=== PATIENT | male | born 1985 | race Caucasian/White ===

== ENCOUNTER 2018-11-12 21:43 | Emergency (ER) | payer BC, SELFPAY ==
[2018-11-12 21:44] VITALS: BP 175/104; PULSE 94; RESP 16; TEMP 36.7; O2SAT 94; BMI 58.0
[2018-11-12] MEDS: Diphth,Pertuss(Acell),Tet Vac 0.5 ML Vial IM (22:28)
[2018-11-12] MEDS: BACITRACIN 15 GM Tube 1 APPLIC TOPICAL (22:29)
--- NOTE | 2018-11-12 22:37 | ED.VISSUMM ---
- ER Visit Summary Date of Service: 11/12/18 Chief Complaint: Finger laceration History of Present Illness: The patient is a 32 M presenting secondary to a finger laceration. Patient states that he lacerated his finger with a sharp light that fell. His tetanus status is unknown. Lacerations on the left, and he is right-hand dominant. Physical Examination: Examination the patient's left hand shows evidence of a semicircular laceration over the patient's proximal interphalangeal joint on the dorsum of the index finger. Normal flexion and extension of the index finger normal two-point discrimination and capillary refill. Test Results: None indicated Emergency Department Course and Treatment: Patient presented secondary to an index finger laceration. Wound was anesthetized via digital block using 5 cc 1% lidocaine. Good anesthesia was obtained. Finger tourniquet was placed, and the wound was then explored through full range of motion. It does not appear to violate the joint capsule. It was then irrigated copiously with saline and scrubbed. Wound was approximated using 4-0 nylon suture. A total of 6 running sutures were used. Patient tolerated this well. Wound was dressed with bacitracin and was placed in a AlumaFoam splint. Patient's tetanus status was updated. Disposition: Discharge Impression: 1. 2 cm left index finger laceration 2. Laceration repair by ED physician This note was generated with [employer] dictation software. It may contain incorrect words, spelling, and punctuation that were not noted in review of the chart prior to signing ED Disposition - Plan for ED Patient: Disposition: Home or Assisted Living Chief Complaint: Laceration Diagnosis: Laceration of index finger Instructions: ED Laceration Hand Referrals: Ceferino Bolton MD [Primary Care Provider] - 10-14 Days suture removal
[2018-11-12 22:44] VITALS: BP 157/91; PULSE 93; RESP 16; O2SAT 98
== END 2018-11-12 23:01 | disposition home or self-care (01) ==
PROVIDERS: Emergency Provider Emergency Medicine; Family Provider Family Medicine; PCP Family Medicine
DX: S61.211A Laceration without foreign body of left index finger without damage to nail, initial encounter (principal); W26.8XXA Contact with other sharp object(s), not elsewhere classified, initial encounter; Y93.9 Activity, unspecified; Y92.9 Unspecified place or not applicable; E66.9 Obesity, unspecified; E11.9 Type 2 diabetes mellitus without complications; Z79.84 Long term (current) use of oral hypoglycemic drugs
CPT/HCPCS: 12001; 90471; 90715; 99283